=== PATIENT | female | born 1955 | race Caucasian/White ===

== ENCOUNTER 2017-05-26 07:53 | Inpatient (IN) | payer OTHER, MEDICAID ==
[~2017-05-26] VITALS: Ht 165.1 cm; Wt 112.0 kg
[2017-05-26] MEDS ORDERED: MULT1CAP33 PO (10:49)
[2017-05-26] MEDS ORDERED: CALC600T12 PO (10:49)
[2017-05-26] MEDS ORDERED: ALBU18HF INH (10:49)
[2017-05-26] MEDS ORDERED: FEXO-123 PO (10:49)
[2017-05-26] MEDS ORDERED: CALC-243 PO (10:49)
[2017-05-26] MEDS ORDERED: Ondansetron 2 mg/mL 2 mL Inj IVPUSH PRN (10:50)
[2017-05-26] MEDS ORDERED: CALC-866 PO (10:50)
[2017-05-26] MEDS ORDERED: Polyethylene Glycol (PEG) 17 Gm Powder PO PRN (10:50)
[2017-05-26] MEDS ORDERED: Alum-Mag Hydrox-Simeth 30 mL Suspension PO PRN (10:50)
[2017-05-26 10:59] VITALS: BP 141/86; PULSE 104; RESP 20; O2SAT 97
[2017-05-26 11:48] LABS: BASOPHILS % (AUTO) 0.1 % (0-3); EOSINOPHILS % (AUTO) 0.1 % (0-5); MONOCYTES % (AUTO) 4.1 % (4-12); Mean Corpuscular Hemoglobin 30.9 pg (27.0-35.0); Mean Corpuscular Volume 90.7 fL (81-100); NEUTROPHILS % (AUTO) 85.9 % (40-74); Platelet Count 238 bil/L (150-400)
[2017-05-26 12:10] LABS: TROPONIN T 0.01 ug/L (0.0-0.011)
[2017-05-26 12:20] LABS: Magnesium 1.8 mg/dL (1.6-2.6)
[2017-05-26] MEDS: 0.9% Sodium Chloride 1,000 ML IV SCH ×2 (12:44→23:00)
--- NOTE | 2017-05-26 14:09 | PCM.HPMED ---
Subjective Date of Service May 26, 2017 Primary Provider: Admitting Physician: Luis Alberto Rasheed MD Primary Care Physician: Other,Physician Attending Physician: Luis Alberto Rasheed MD Admit Status: From the Emergency Department, Admit to [facility], Non-Telemetry Chief Complaint: Intractable nausea and abdominal pain History of Present Illness: 62 female history of obesity, asthma, GERD, hypertension, history of pancreatitis presenting with nausea vomiting for 8-10 days and abdominal pain. Patient was seen initially at [facility]'s emergency department and transferred to [facility] with diagnosis of acute pancreatitis and lipase of 3319. Patient says that she was in her usual state of health until began feeling nauseous approximately 10 days ago. Yesterday she had an episode of violent retching however was nonbloody and nonbilious. Patient says that she has had poor by mouth intake over the last week. [place] very dry. Patient does have a history of pancreatitis 2 years ago and 4 years ago. Was seen in ED each time however never hospitalized as she wanted to go home each time. She has a primary care physician Dr. Rogers who she has been following with for a number of years. She says that they never really figured out the etiology of the acute pancreatitis. She is a nondrinker, nonsmoker. No history of trauma. Is not sure whether she has ever had her lipids tested. Did have a history of gallstones but has had a cholecystectomy. Is not taking any new medications. Patient denies any shortness of breath chest pain. Denies any diarrhea. Denies any fever, chills. Patient says that she is no longer feeling lightheaded after receiving almost 4 L of fluid in the ED. Abdominal pain has improved also and currently a 2 out of 10. Patient says her nausea is also improved she has been in to tolerate some oral liquids. Per records from [place]- Labs CBC total 0.7 hemoglobin 16 glucose 131 creatinine 0.8 sodium 138 potassium 4.2 carbon monoxide 26 AST 3338 lipase 3319 amylase 225 Urinalysis- specific gravity 1.030 negative for nitrite negative leukocyte esterase WBCs 0-1 bacteria none seen Review of Systems: 12 point review of symptoms negative except for that in history of present illness Allergies Coded Allergies: Penicillins (Verified Allergy, Severe, Anaphylaxis, 05/26/17) prochlorperazine (Verified Allergy, Severe, Hallucinations, 05/26/17) Bleach (Sodium Hypochlorite) (Verified Allergy, Intermediate, Shortness of Breath, 05/26/17) cephalexin (Verified Allergy, Intermediate, Shortness of Breath, 05/26/17) Home Medications Bisoprolol-not taking regularly Albuterol inhaler Fluticasone propria on 8 nasal spray Singulair oral PMH GERD Hypertension Obesity Migraine headaches History history of acute pancreatitis History of gastroenteritis Irritable bowel syndrome Asthma Surgical History Status post CCK Family History Sister- colon cancer Mother-soft tissue cancer Father [place]- fatal, in 70s Social History Hx Alcohol Use: No Hx Substance Use: No Hx Tobacco Use: No Smoking Status: Never Smoker Living Arrangement: with Family Exam Vital Signs Vital Sign - Last Date Time Temp Pulse Resp B/P Pulse Ox O2 Delivery O2 Flow Rate FiO2 05/26/17 10:59 36.9 104 20 141/86 97 Room Air Exam Gen: Obese, NAD, AOx3. Lying in bed and appears comfortable HEENT: NCAT, PERRLA, EOMI, MM-moist, sclera anicteric. Neck: Soft, supple, symmetrical, no thyromegaly/JVD/LAD. Resp: CTAB, no R/R/W. CV: RRR, nl S1/S2, no M/R/G, Abd: Obese, Soft, (+) BS, + mild to moderate tenderness to palpation- diffuse. Florentino's negative. No rebound tenderness or guarding. Ext: +PP, -edema Skin: warm/dry/intact Neuro/Psych: No focal deficits, CN II-XII grossly intact. AAOx3, cooperative , appropriate mood/affect. Lab and Diagnostics Result Diagram: 05/26/17 1130 05/26/17 1130 Assessment & Plan 62 female history of obesity, asthma, GERD, hypertension, history of pancreatitis presenting with nausea vomiting for 8-10 days and abdominal pain. Patient was seen initially at [facility]'s emergency department and transferred to [facility] with diagnosis of acute pancreatitis and lipase of 3319. #Abdominal pain and intractable nausea-likely secondary to mild Acute pancreatitis- patient has history of pancreatitis 2 years ago. Etiology is still unclear. Patient is a nondrinker. No history of trauma. Other differential for the abdominal pain- consider peptic ulcer. Patient is a history of IBS however no diarrhea. Patient is afebrile did have a white count of 12.7 ED however it is 8 on repeat. Afebrile we will culture. No antibiotics at this time. -Consider triglyceridemia, will check lipid panel in a.m. patient is status post 2.5 L of IVF in ED. -Patient will be kept clear liquid diet, continue with IV fluids at 1 50 mL per hour. Monitor for volume overload. -Nausea appears to be controlled to continue with Zofran when necessary. -Pain-patient is written for morphine IV when necessary however however has not requested and pain appears to be well controlled with Tylenol. -Recheck lipase in the morning. #asthma- continue with home meds albuterol inhaler, Singulair. #GERD- we will start famotidine IV. #hypertension- patient says she is not currently taking her bisoprolol as her blood pressure has been well controlled. Blood pressure is elevated however patient still wished to take her blood pressure medication at this time. Continue to monitor patient. Has agreed to take if blood pressure greater than 160 consistently. Pain Evaluation: Adequate Pain Control GI Prophylaxis: H2 cedric VTE Prophylaxis: Sub-Q Enoxaparin VTE Mechanical Devices: Intermittant Pneumatic CD Resuscitation Status: CPR: Attempt Resuscitation Time spent 60 minutes Luis Alberto Rasheed MD May 26, 2017 14:08
[2017-05-26] MEDS ORDERED: Albuterol HFA 60 Puff 8 Gm Inhaler INHALATION PRN (14:25)
[2017-05-26] MEDS ORDERED: Albuterol 2.5 mg/3 mL Inhalation Solution NEB PRN (14:30)
[2017-05-26] MEDS: Alum-Mag Hydrox-Simeth 30 mL Suspension PO PRN (14:45)
[2017-05-26 15:23] VITALS: BP 132/77; PULSE 89; RESP 18; O2SAT 99
[2017-05-26 16:00] VITALS: PULSE 100; RESP 20; O2SAT 97
[2017-05-26] MEDS: Famotidine Inj 20 MG in IV Premix 1 EACH IV SCH (20:24)
[2017-05-26 20:52] VITALS: BP 173/88; PULSE 111; RESP 18; O2SAT 95
[2017-05-26 21:10] VITALS: BP 165/100; PULSE 103; RESP 16; O2SAT 96
[2017-05-26 22:57] VITALS: PULSE 103; RESP 20; O2SAT 96
[2017-05-27] VITALS (8 sets, daily range): BP systolic 115–162; BP diastolic 68–91; PULSE 62–101; RESP 16–20; O2SAT 92–97
[2017-05-27] MEDS: Alum-Mag Hydrox-Simeth 30 mL Suspension PO PRN (00:34)
[2017-05-27] MEDS: 0.9% Sodium Chloride 1,000 ML IV SCH ×4 (06:48→20:19)
[2017-05-27 07:15] LABS: BASOPHILS % (AUTO) 0.1 % (0-3); EOSINOPHILS % (AUTO) 0.1 % (0-5); MONOCYTES % (AUTO) 5.8 % (4-12); Mean Corpuscular Hemoglobin 31.4 pg (27.0-35.0); Mean Corpuscular Volume 92.5 fL (81-100); NEUTROPHILS % (AUTO) 80.9 % (40-74); Platelet Count 222 bil/L (150-400)
[2017-05-27 07:42] LABS: Bilirubin, Direct 0.2 mg/dL (0.0-0.3)
[2017-05-27] MEDS: Famotidine Inj 20 MG in IV Premix 1 EACH IV SCH ×2 (07:50→20:19)
[2017-05-27 10:25] LABS: TROPONIN T < 0.010 ug/L (0.0-0.011)
--- NOTE | 2017-05-27 11:56 | DRSVH ---
PROCEDURE: X-RAY CHEST ONE VIEW, PORTABLE ([id number]) INDICATIONS: Chest Tightness w/ resp TECHNIQUE: One view of the chest was acquired. COMPARISON: None. FINDINGS: Surgical changes and devices: None. Lungs and pleura: No pleural effusions or pneumothorax. Left basilar scarring/atelectasis. Otherwise lungs are clear. Mediastinum: Mediastinal contours appear normal. Heart size is normal. Bones and chest wall: No suspicious bony lesions. Overlying soft tissues appear unremarkable. IMPRESSION: Left basilar atelectasis/scarring. Otherwise, normal chest radiograph. Dictated by: Benitez Jimenez M.D. on 05/27/2017 at 11:54 Approved by: Benitez Jimenez M.D. on 05/27/2017 at 11:54
--- NOTE | 2017-05-27 16:05 | PCM.PNMED ---
Subjective Date of Service May 27, 2017 Subjective Patient reports improved abdominal pain overnight. Is tolerating diet and is feeling hungry. A nausea is also improved and she said no episodes of emesis overnight. Patient has some chest tightness overnight which is new for her. Exam Vital Signs Vital Sign - Last Date Time Temp Pulse Resp B/P Pulse Ox O2 Delivery O2 Flow Rate FiO2 05/27/17 12:16 36.9 80 18 115/76 95 Room Air Intake and Output 05/26/17 05/26/17 05/27/17 Cumulative From/Thru 15:00 23:00 07:00 05/26/17 10:59 - 05/27/17 06:53 Intake Total 957 ml 50 ml 1007 ml Output Total 500 ml 500 ml Balance 457 ml 50 ml 507 ml Intake Oral 400 ml 50 ml 450 ml IV Total 557 ml 557 ml Output Urine Total 500 ml 500 ml # Voids 3 3 # Bowel Movements 2 2 Exam Gen: Obese, NAD, AOx3. HEENT: NCAT, PERRLA, EOMI, MM-moist, sclera anicteric. Neck: Soft, supple, symmetrical, no thyromegaly/JVD/LAD. Resp: CTAB, no R/R/W. CV: RRR, nl S1/S2, no M/R/G, Abd: Obese, Soft, (+) BS, + very mild tenderness to palpation-diffuse- improved. No rebound tenderness or guarding. Ext: +PP, -edema Skin: warm/dry/intact Neuro/Psych: No focal deficits, CN II-XII grossly intact. AAOx3, cooperative , appropriate mood/affect. IVs and Medications Medications Reviewed: Medications were reviewed in detail Lab and Diagnostics Result Diagram: 05/27/1764505/27/1746 Assessment & Plan 62 female history of obesity, asthma, GERD, hypertension, history of pancreatitis presenting with nausea vomiting for 8-10 days and abdominal pain. Patient was seen initially at [facility]'s emergency department and transferred to [facility] with diagnosis of acute pancreatitis and lipase of 3319. # Acute pancreatitis- POA, improving. -patient has history of pancreatitis 2 years ago. Etiology is still unclear. Patient is a nondrinker. No history of trauma. Other differential for the abdominal pain- consider peptic ulcer. Patient is a history of IBS however no diarrhea. Patient is afebrile did have a white count of 12.7 ED however it is 8 on repeat. If we will culture. No antibiotics at this time. -Consider triglyceridemia, will check lipid panel in a.m. she is receiving IV fluids normal saline at 100 per hour. -Nausea appears to be controlled to continue with Zofran when necessary. -Pain-patient is written for morphine IV prn. -Lipase is morning was 13, lab values repeated 13 again on repeat. -Diet advanced to regular. Tolerates in a.m. likely discharge. #Leukocytosis- present on admission, active. Has been afebrile without a clear source of infection. Holding off on antibiotics as this is likely inflammatory related to the pancreatitis. We will culture if febrile - Repeat CBC in a.m. #hypertension- not taking home medication bisoprolol therefore will hold for now patient's blood pressure has been stable today. Chronic Issues- #asthma- continue with home meds albuterol inhaler, Singulair. #GERD- we will start famotidine IV. Dispo- was admitted inpatient stay likely greater than 2 midnights GI Prophylaxis: H2 cedric VTE Prophylaxis: Sub-Q Enoxaparin VTE Mechanical Devices: Intermittant Pneumatic CD Resuscitation Status: CPR: Attempt Resuscitation Luis Alberto Rasheed MD May 27, 2017 16:05
[2017-05-27] MEDS ORDERED: diphenhydrAMINE 2.5 mg/mL 5 mL Syrup PO PRN (17:35)
[2017-05-28 00:30] VITALS: PULSE 81; RESP 18; O2SAT 97
[2017-05-28 05:17] VITALS: BP 129/75; PULSE 82; RESP 17; O2SAT 97
[2017-05-28 06:44] LABS: Bilirubin, Direct 0.2 mg/dL (0.0-0.3)
[2017-05-28 06:46] LABS: BASOPHILS % (AUTO) 0.3 % (0-3); EOSINOPHILS % (AUTO) 3.3 % (0-5); MONOCYTES % (AUTO) 12.9 % (4-12); Mean Corpuscular Hemoglobin 31.7 pg (27.0-35.0); Mean Corpuscular Volume 94.5 fL (81-100); NEUTROPHILS % (AUTO) 59.3 % (40-74); Platelet Count 212 bil/L (150-400)
[2017-05-28] MEDS: Famotidine Inj 20 MG in IV Premix 1 EACH IV SCH (08:30)
--- NOTE | 2017-05-28 11:07 | PCM.PNMED ---
Subjective Date of Service May 28, 2017 Subjective Patient's abdominal pain is resolved. Denies any current nausea. No chest pain. Exam Vital Signs Vital Sign - Last Date Time Temp Pulse Resp B/P Pulse Ox O2 Delivery O2 Flow Rate FiO2 05/28/17 05:17 36.6 82 17 129/75 97 Room Air Intake and Output 05/27/17 05/27/17 05/28/17 Cumulative From/Thru 15:00 23:00 07:00 05/26/17 10:59 - 05/28/17 05:55 Intake Total 1820 ml 1835 ml 4662 ml Output Total 450 ml 800 ml 1750 ml Balance 1370 ml 1035 ml 2912 ml Intake Oral 876 ml 600 ml 1926 ml IV Total 944 ml 1235 ml 2736 ml Output Urine Total 450 ml 800 ml 1750 ml # Voids 3 # Bowel Movements 0 2 Exam Gen: Obese, NAD, AOx3. HEENT: NCAT, PERRLA, EOMI, MM-moist, sclera anicteric. Neck: Soft, supple, symmetrical, no thyromegaly/JVD/LAD. Resp: CTAB, no R/R/W. CV: RRR, nl S1/S2, no M/R/G, Abd: Obese, Soft, (+) BS, + No tenderness to palpation No rebound tenderness or guarding. Ext: +PP, -edema Skin: warm/dry/intact Neuro/Psych: No focal deficits, CN II-XII grossly intact. AAOx3, cooperative , appropriate mood/affect. IVs and Medications Medications Reviewed: Medications were reviewed in detail Lab and Diagnostics Result Diagram: 05/28/17 0550 05/28/17 0550 X-Rays, CTs and MRIs PROCEDURE: X-RAY CHEST ONE VIEW, PORTABLE ([id number]) INDICATIONS: Chest Tightness w/ resp TECHNIQUE: One view of the chest was acquired. COMPARISON: None. FINDINGS: Surgical changes and devices: None. Lungs and pleura: No pleural effusions or pneumothorax. Left basilar scarring/ atelectasis. Otherwise lungs are clear. Mediastinum: Mediastinal contours appear normal. Heart size is normal. Bones and chest wall: No suspicious bony lesions. Overlying soft tissues appear unremarkable. IMPRESSION: Left basilar atelectasis/scarring. Otherwise, normal chest radiograph. 12-lead ECG 27-May-2017 11:32:41- Sinus Rythm, No FIDEL Assessment & Plan 62 female history of obesity, asthma, GERD, hypertension, history of pancreatitis presenting with nausea vomiting for 8-10 days and abdominal pain. Patient was seen initially at [facility]'s emergency department and transferred to [facility] with diagnosis of acute pancreatitis and lipase of 3319 which has improved to 25 today # Acute pancreatitis- POA, improving. -patient has history of pancreatitis 2 years ago. Etiology is still unclear. Patient is a nondrinker. No history of trauma. Other differential for the abdominal pain- consider peptic ulcer. Patient is a history of IBS however no diarrhea. Patient is afebrile did have a white count of 12.7 ED however it is 8 on repeat. If we will culture. No antibiotics at this time. -Consider triglyceridemia, will check lipid panel in a.m. she is receiving IV fluids normal saline at 100 per hour. -Nausea appears to be controlled to continue with Zofran when necessary. -Pain-patient is written for morphine IV prn. -Lipase down trended from 01/09/2019 [facility] emergency department to 13 and 25 today. -Diet advanced to regular tolerated well. -Patient follow-up with primary care physician and get a possible referral to gastroenterology to determine etiology of pancreatitis. #Leukocytosis- present on admission, resolved. Has been afebrile without a clear source of infection. Health off on antibiotics as this is likely inflammatory related to the pancreatitis. We will culture if febrile #hypertension- not taking home medication bisoprolol therefore will hold for now patient's blood pressure has been stable today. Chronic Issues- #asthma- continue with home meds albuterol inhaler, Singulair. #GERD- we will start famotidine IV. Dispo-will be discharged today to home. GI Prophylaxis: H2 cedric VTE Prophylaxis: Sub-Q Enoxaparin VTE Mechanical Devices: Intermittant Pneumatic CD Resuscitation Status: CPR: Attempt Resuscitation Luis Alberto Rasheed MD May 28, 2017 11:07
--- NOTE | 2017-05-28 11:16 | PCM.DIMED ---
Discharge Instructions Date of Service May 28, 2017 Dates of Hospitalization May 26, 2017 at 09:16 Discharge Diagnosis Discharge Diagnosis Mild acute pancreatitis without necrosis or infection Intractable nausea Leukocytosis Hypertension Medication Instructions Additional med instructions Take Tylenol as needed for pain Diet Discharge Diet: No restrictions Activity Discharge Activity: No restrictions Call your provider Call your provider for: Fever or Chills, Vomitting Patient Instructions Patient Instructions Follow-up with her primary care physician to further workup the cause of these repeated episodes of pancreatitis. May benefit from a referral to a platen press feeder. Follow-up with PCP in: 1 week Luis Alberto Rasheed MD May 28, 2017 11:16
--- NOTE | 2017-05-28 11:18 | PCM.DC.MED ---
Discharge Summary Date of Service May 28, 2017 Dates of Hospitalization Date of Hospital Admission May 26, 2017 at 09:16 Date of Discharge: May 28, 2017 Providers: Admitting Physician: Luis Alberto Rasheed MD Primary Care Physician: Other,Physician Attending Physician: Luis Alberto Rasheed MD Diagnosis at Time of Discharge Diagnosis at Time of Discharge Mild acute pancreatitis without necrosis or infection Intractable nausea Leukocytosis Hypertension Procedures XRay, CTs & MRIs PROCEDURE: X-RAY CHEST ONE VIEW, PORTABLE ([id number]) INDICATIONS: Chest Tightness w/ resp TECHNIQUE: One view of the chest was acquired. COMPARISON: None. FINDINGS: Surgical changes and devices: None. Lungs and pleura: No pleural effusions or pneumothorax. Left basilar scarring/ atelectasis. Otherwise lungs are clear. Mediastinum: Mediastinal contours appear normal. Heart size is normal. Bones and chest wall: No suspicious bony lesions. Overlying soft tissues appear unremarkable. IMPRESSION: Left basilar atelectasis/scarring. Otherwise, normal chest radiograph. ECG 12 Lead 27-May-2017 11:32:41- Sinus Rythm, No FIDEL Brief History Per admission history of present illness 62 female history of obesity, asthma, GERD, hypertension, history of pancreatitis presenting with nausea vomiting for 8-10 days and abdominal pain. Patient was seen initially at [facility] emergency department and transferred to [facility] with diagnosis of acute pancreatitis and lipase of 3319. Patient says that she was in her usual state of health until began feeling nauseous approximately 10 days ago. Yesterday she had an episode of violent retching however was nonbloody and nonbilious. Patient says that she has had poor by mouth intake over the last week. [place] very dry. Patient does have a history of pancreatitis 2 years ago and 4 years ago. Was seen in ED each time however never hospitalized as she wanted to go home each time. She has a primary care physician Dr. Rogers who she has been following with for a number of years. She says that they never really figured out the etiology of the acute pancreatitis. She is a nondrinker, nonsmoker. No history of trauma. Is not sure whether she has ever had her lipids tested. Did have a history of gallstones but has had a cholecystectomy. Is not taking any new medications. Patient denies any shortness of breath chest pain. Denies any diarrhea. Denies any fever, chills. Patient says that she is no longer feeling lightheaded after receiving almost 4 L of fluid in the ED. Abdominal pain has improved also and currently a 2 out of 10. Patient says her nausea is also improved she has been in to tolerate some oral liquids. Per records from [place]- Labs CBC total 0.7 hemoglobin 16 glucose 131 creatinine 0.8 sodium 138 potassium 4.2 carbon monoxide 26 AST 3338 lipase 3319 amylase 225 Urinalysis- specific gravity 1.030 negative for nitrite negative leukocyte esterase WBCs 0-1 bacteria none seen Hospital Course 62 female history of obesity, asthma, GERD, hypertension, history of pancreatitis presenting with nausea vomiting for 8-10 days and abdominal pain. Patient was seen initially at [facility] emergency department and transferred to [facility] with diagnosis of acute pancreatitis and lipase of 3319 which has improved to 25 today # Acute pancreatitis- POA, improving. -patient has history of pancreatitis 2 years ago. Etiology is still unclear. Patient is a nondrinker. No history of trauma. Other differential for the abdominal pain- consider peptic ulcer. Patient is a history of IBS however no diarrhea. Patient is afebrile did have a white count of 12.7 ED however it is 8 on repeat. If we will culture. No antibiotics at this time. -Consider triglyceridemia, will check lipid panel in a.m. she is receiving IV fluids normal saline at 100 per hour. -Nausea appears to be controlled to continue with Zofran when necessary. -Pain-patient is written for morphine IV prn. -Lipase down trended from 01/09/2019 [facility] emergency department to 13 and 25 today. -Diet advanced to regular tolerated well. -Patient follow-up with primary care physician and get a possible referral to gastroenterology to determine etiology of pancreatitis. #Leukocytosis- present on admission, resolved. Has been afebrile without a clear source of infection. Health off on antibiotics as this is likely inflammatory related to the pancreatitis. We will culture if febrile #hypertension- not taking home medication bisoprolol therefore will hold for now patient's blood pressure has been stable today. Chronic Issues- #asthma- continue with home meds albuterol inhaler, Singulair. #GERD- we will start famotidine IV. Dispo-will be discharged today to home. Exam Vital Signs (Last) Date Time Temp Pulse Resp B/P Pulse Ox O2 Delivery O2 Flow Rate FiO2 05/28/17 05:17 36.6 82 17 129/75 97 Room Air Test 05/26/17 11:30 05/27/17 06:46 05/28/17 05:50 Magnesium Level 1.8mg/dL (1.6-2.6) Pro-B-Type Natriuretic Peptide 98.05pg/mL (0-287) Troponin T < 0.010ug/L (0.0-0.011) Amylase Level 31U/L (28-100) White Blood Count 6.6th/mm3 (3.8-10.1) Red Blood Count 4.17mil/mm3 (3.90-5.20) Hemoglobin 13.2g/dL (12.0-15.6) Hematocrit 39.4% (35.0-46.0) Mean Corpuscular Volume 94.5fL (81-100) Mean Corpuscular Hemoglobin 31.7pg (27.0-35.0) Mean Corpuscular Hemoglobin Concent 33.5% (32.0-37.0) Red Cell Distribution Width 13.1% (12.3-15.4) Platelet Count 212bil/L (150-400) Neutrophils (%) (Auto) 59.3% (40-74) Lymphocytes (%) (Auto) 24.0% (14-46) Monocytes (%) (Auto) 12.9% (4-12) Eosinophils (%) (Auto) 3.3% (0-5) Basophils (%) (Auto) 0.3% (0-3) Sodium Level 144mEq/L (134-144) Potassium Level 4.0mEq/L (3.5-5.2) Chloride Level 107mEq/L (97-108) Carbon Dioxide Level 25mmol/L (18-29) Blood Urea Nitrogen 10mg/dL (8-27) Creatinine 0.56mg/dL (0.57-1.00) Estimat Glomerular Filtration Rate 157mL/min (>59) Glucose Level 106mg/dL (60-99) Calcium Level 8.6mg/dL (8.5-10.1) Total Bilirubin 0.2mg/dL (0.0-1.2) Direct Bilirubin 0.2mg/dL (0.0-0.3) Aspartate Amino Transf (AST/SGOT) 23U/L (0-50) Alanine Aminotransferase (ALT/SGPT) 24U/L (0-32) Alkaline Phosphatase 59U/L (25-165) Total Protein 5.7g/dL (6.4-8.4) Albumin 3.4g/dL (3.4-5.0) Triglycerides Level 144mg/dL (0-149) Cholesterol Level 134mg/dL (100-199) LDL Cholesterol, Calculated 73.200mg/dL (0-99) VLDL Cholesterol 28.800mg/dL HDL Cholesterol 32mg/dL (>39) Cholesterol/HDL Ratio 4.19 (0.0-4.4) Lipase 25U/L (13-60) Discharge Medications Discharge Medications Calcium Carbonate/Vitamin D3 (Calcium 600 + Vit D Tablet) 1 Each Tablet 2,400 MG PO DAILY (Reported) Fexofenadine (Aller-Ease) 60 Mg Tablet 60 MG PO HS (Reported) Multivitamin (Multivitamins) 1 Each Capsule 1 EACH PO DAILY (Reported) As needed Albuterol Sulfate (Ventolin HFA Inhaler) 200 Puff/18 Gm Inhaler 2 PUFFS INH Q4H PRN PRN For Shortness of Breath (Reported) Calcium Carb/Mag Hydrox/Simeth (Antacid Multi-Sym Tab Chew) 1 Each Tab.chew 1 EACH PO PRN For Indigestion (Reported) Additional med instructions Take Tylenol as needed for pain Followup Plan Discharge Diet: No restrictions Discharge Activity: No restrictions Patient Instructions Follow-up with her primary care physician to further workup the cause of these repeated episodes of pancreatitis. May benefit from a referral to a knit goods cutter hand. Follow-up with PCP in: 1 week Luis Alberto Rasheed MD May 28, 2017 11:18
[2017-05-28] MEDS: 0.9% Sodium Chloride 1,000 ML IV SCH (12:32)
== END 2017-05-28 12:29 | disposition home or self-care (01) | DRG 439 ==
LOC: OSC 09:16
PROVIDERS: ADMIT Internal Medicine; ATTEND Internal Medicine
DX: K85.90 Acute pancreatitis without necrosis or infection, unspecified (principal); Z68.41 Body mass index [BMI] 40.0-44.9, adult; I10 Essential (primary) hypertension; E66.9 Obesity, unspecified; J45.909 Unspecified asthma, uncomplicated; K21.9 Gastro-esophageal reflux disease without esophagitis; D72.829 Elevated white blood cell count, unspecified